=== PATIENT | male | born 1990 | race Caucasian/White ===

== ENCOUNTER 2022-01-10 21:48 | Emergency (ER) | payer SELFPAY ==
[~2022-01-10] VITALS: Ht 200.7 cm; Wt 80.7 kg
[2022-01-10 21:55] VITALS: BP_SYST 144
--- NOTE | 2022-01-10 22:11 | NUR ---
Patient to ER bed 5 to gown for evaluation. Side rails up. Report given to [place]
--- NOTE | 2022-01-10 22:15 | NUR ---
Pt BIB BLS ambulance from home with c/o "pressure" like pain at ctr of chest that radiates to L shoulder and back. Pt states pain started yesterday, but progressed today prior to ED arrival. Reports abd cramping, but denies any N&V at this time. PMH of HTN. Pt VSS at this time. Breathing adequately on RA. Appears in no acute distress at this time.
--- NOTE | 2022-01-10 22:27 | NUR ---
# 20 gauge angiocath placed to R AC. Use of asceptic technique. Opsite placed over site. Blood return noted. Flushed with 10 cc of normal saline. No evidence of infiltration noted. Patient tolerated well.
--- NOTE | 2022-01-10 22:29 | NUR ---
MD Ceja at bedside examining patient.
[2022-01-10] MEDS ORDERED: ASPIRIN 81 MG TAB.CHEW PO ONE (22:45)
[2022-01-10] MEDS ORDERED: LORazepam 1 MG TABLET PO ONE (22:45)
[2022-01-10 23:34] LABS: BASOPHILS # (AUTO) 0.1 K/uL (0.0-0.2); BASOPHILS % (AUTO) 0.6 % (0.0-2.0); EOSINOPHILS # (AUTO) 0.1 K/uL (0.0-0.4); EOSINOPHILS % (AUTO) 1.2 % (0.0-4.0); HEMATOCRIT 42.1 % (36-54); LYMPHOCYTES # (AUTO) 1.6 K/uL (1.0-5.5); LYMPHOCYTES % (AUTO) 14.2 % (20.5-51.5); MEAN CORPUSCULAR VOLUME 90 fL (79.0-98.0); MONOCYTES % (AUTO) 8.7 % (1.7-9.3); NEUTROPHILS # (AUTO) 8.6 K/uL (1.8-7.7); NEUTROPHILS % (AUTO) 75.3 % (40.0-70.0); PLATELET COUNT (AUTO) 233 K/uL (130-430); RED BLOOD CELL COUNT(AUTO) 4.69 MIL/uL (4.2-6.2); RED CELL DISTRIBUTION WIDTH 12.7 % (9.0-15.0); WHITE BLOOD COUNT (AUTO) 11.5 K/uL (4.8-10.8)
[2022-01-10 23:36] LABS: ANION GAP 8 (5-15); CALCIUM 9.8 mg/dL (8.4-11.0); CHLORIDE 99 mmol/L (98-107); CREATININE 1.13 mg/dL (0.55-1.30); GLUCOSE 108 mg/dL (70-99); POTASSIUM 3.3 mmol/L (3.5-5.1); SODIUM SERUM 134 mmol/L (136-145); UREA NITROGEN, BLOOD 12 mg/dL (8-21)
[2022-01-10 23:42] LABS: GFR AFRICAN AMERICAN 96 mL/min (>90)
[2022-01-10 23:44] LABS: ALANINE AMINOTRANSFERASE 17 U/L (12-78); ALBUMIN 4.1 g/dL (3.4-4.8); ASPARTATE AMINOTRANSFERASE 12 U/L (10-37); TOTAL BILIRUBIN 0.7 mg/dL (0.0-1.0)
[2022-01-11] MEDS ORDERED: POTASSIUM CHLORIDE 20 MEQ TAB.PRT.SR PO ONE (00:30)
[2022-01-11] MEDS ORDERED: IBUP-1969 PO (00:45)
[2022-01-11] MEDS ORDERED: POTASSIUM CHLORIDE 20 MEQ TAB.PRT.SR ONE (00:47)
[2022-01-11 00:56] VITALS: BP_SYST 122
--- NOTE | 2022-01-11 00:57 | NUR ---
Patient given written and verbal discharge instructions and verbalizes understanding. ER MD Ceja discussed with patient the results and treatment provided. Patient in stable condition. ID arm band removed. IV catheter removed intact and dressing applied, no active bleeding. Rx of Ibuprofen sent to pharmacy of choice. Patient educated on pain management and to follow up with PMD. Pain Scale 0/10 at time of discharge. Opportunity for questions provided and answered. Medication side effect fact sheet provided.
== END 2022-01-11 00:57 | disposition home or self-care (01) ==
LOC: SED 21:48
DX: R07.89 Other chest pain (principal); F95.9 Tic disorder, unspecified; E87.6 Hypokalemia; Z79.899 Other long term (current) drug therapy
CPT/HCPCS: 36415; 71045; 80053; 83880; 84484; 85025; 93005; 99285